=== PATIENT | female | born 1985 | race Hispanic/Latino ===

== ENCOUNTER 2016-09-17 10:19 | Emergency (ER) | payer OTHER ==
--- NOTE | 2016-09-17 11:08 | EDDOCDS ---
Physician Documentation [facility] Name: Kelly Medley Age: 31 yrs Sex: Female : 1985 Arrival Date: 09/17/2016 Time: 10:19 Bed Triage 3 Private MD: NO PRIMARY PHYSICIAN, . Disposition: 09/17/16 11:01 Discharged to Home/Self Care. Impression: Acute upper respiratory infection, unspecified. - Condition is Stable. - Discharge Instructions: Upper Respiratory Infection, Adult. - Prescriptions for Tylenol 325 mg Oral Tablet - take 2 tablet by ORAL route every 6 hours as needed; 1 bottle. Mucinex 600 mg - take 1 tablet by ORAL route 2 times per day; 30 tablet. benzonatate 200 mg Oral Capsule - take 1 capsule by ORAL route 3 times per day As needed; 30 capsule. - Medication Reconciliation, Local Pharmacy Hours form. - Follow up: Juan Francisco Hicks, [facility]; When: As needed; Reason: Worsening of conditions. Follow up: Emergency Department; When: As needed; Reason: Worsening of conditions. - Problem is new. - Symptoms have improved. Historical: - Allergies: no known allergies; - Home Meds: 1. none - PMHx: none; - PSHx: none; - Social history: Smoking status: Patient states former smoker of tobacco. 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 . - Family history: Not pertinent. - : The pt / caregiver states he / she is not on anticoagulants. Home medication list is obtained from the patient. - Exposure Risk Screening:: None identified. 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 (160.02 cm) (M); Pain 4/10; 10:21 Body Mass Index 20.55 (52.62 kg, 160.02 cm) cmb MDM: 10:42 Strep Screen, Nursing ordered. dk1 10:52 GATS (NEGATIVE STREP SCREEN) Ordered. EDMS 10:52 Financial registration complete. lg Signatures: Dispatcher [employer] EDMirtha Hodge, José Luis Reg lg Jero Landis PA-C PA-C dk1 Sharri Alfaro,RN RN kc3 MTDD
--- NOTE | 2016-09-17 11:08 | EDDOCDS ---
Nurse's Notes [facility] Name: Kelly Medley Age: 31 yrs Sex: Female : 1985 Arrival Date: 09/17/2016 Time: 10:19 Bed Triage 3 Private MD: NO PRIMARY PHYSICIAN, . Diagnosis: Acute upper respiratory infection, unspecified Presentation: 09/17 10:25 Presenting complaint: Patient states: sore throat and mild discomfort when swallowing x kc3 1 week. Risk factors: Stridor is not present. Drooling is not present. Shortness of breath is not present. Cellulitis is not present. Adult Sepsis Screening: The patient does not have new or worsening altered mentation. Patient's respiratory rate is less than 22. Systolic blood pressure is greater than 100. Patient has a qSOFA score of 0- Negative Sepsis Screen. Suicide/Homicide risk assessment- the patient denies having any suicidal and/or homicidal ideations and does not present with any other emotional, behavioral or mental health complaints. Status: The patient is a dependent. Transition of care: patient was not received from another setting of care. 10:25 Acuity: SHAHRZAD Level 4 kc3 10:25 Method Of Arrival: Walkin/Carried/Asstd kc3 Triage Assessment: 10:28 General: Appears in no apparent distress, comfortable, Behavior is appropriate for age, kc3 cooperative. Pain: Location: throat. Pain: Pain currently is 4 out of 10 on a pain scale. Pt Declines HIV testing. EENT: Reports difficulty swallowing x 1 week pain when swallowing. 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 none - PMHx: none; - PSHx: none; - Social history: Smoking status: Patient states former smoker of tobacco. 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 . - Family history: Not pertinent. - : The pt / caregiver states he / she is not on anticoagulants. Home medication list is obtained from the patient. - Exposure Risk Screening:: None identified. Screenin:52 Screening information is obtained from the patient. Fall risk: No risks identified. mlb1 Assistance ADL's: requires no assistance with activities of daily living. Abuse/DV Screen: The patient / caregiver reports he/she is: not in a situation that causes fear, pain or injury. Nutritional screening: No deficits noted. Advance Directives: Currently, there is no health care proxy. home support is adequate. Assessment: 10:51 General: Appears in no apparent distress, Behavior is appropriate for age, cooperative. mlb1 Pain: Location: left aspect of posterior pharynx and right aspect of posterior pharynx. EENT: Throat is reddened with gag reflex present. Respiratory: Airway is patent Respiratory effort is even, unlabored. Vital Signs: 10:21 BP 129 / 78; Pulse 82; Resp 16; Temp 97.4(O); Pulse Ox 100% ; Weight 52.62 kg (M); cmb Height 63 in. (160.02 cm) (M); Pain 4/10; 10:21 Body Mass Index 20.55 (52.62 kg, 160.02 cm) cmb Vitals: 10:21 Log In Time: September 17, 2016 at 10:19. cmb 10:51 Strep Screen is obtained and tested: Negative, a GATSNEG culture is ordered in [facility] mlb1 and sent. ED Course: 10:20 Patient visited by Naila Pinedo. cmb 10:20 Patient moved to Waiting cmb 10:21 NO PRIMARY PHYSICIAN, . is Private Physician. cmb 10:23 Patient moved to Pre RCE cmb 10:27 Triage Initiated kc3 10:30 Patient moved to Triage 3 kc3 10:33 [facility]. dk1 10:33 Hari Munson MD is Attending Physician. dk1 10:51 Patient visited by Jero Landis PA-C. dk1 10:52 The patient / caregiver is instructed regarding the plan of care and ED course. mlb1 10:52 No procedures done that require assistance. mlb1 10:57 GATS (NEGATIVE STREP SCREEN) Sent. kc3 11:01 [facility]. dk1 11:04 Patient name changed from Alba\S\\S\Bigio-Iman\S\ to Alba\S\Carolyn\S\Bigio-Iman. EDMS 11:06 No IV's were initiated during this patient's visit. kc3 Order Results: There are currently no results for this order. Outcome: 11:01 Discharge ordered by Provider. dk1 11:06 Discharge Assessment: Patient awake, alert and oriented x 3. No cognitive and/or kc3 functional deficits noted. Patient verbalized understanding of disposition instructions. patient administered narcotics - no. The following High Risk Discharge criteria are identified: None. Discharged to home ambulatory. Condition: stable. Discharge instructions given to patient, Instructed on discharge instructions, follow up and referral plans. medication usage, Demonstrated understanding of instructions, medications, Pt was receptive of discharge instructions/ teaching. Prescriptions given X 3. No special radiology studies were completed. Property :Personal belongings accompany Pt. 11:07 Patient left the ED. kc3 Signatures: Dispatcher [employer] EDNC Jason Cr RN RN mlb1 Jero Landis, PACarolinaC PACarolinaC charli1 Naila Pinedo Kelsi,RN RN kc3 KAVITHA
--- NOTE | 2016-09-19 12:09 | EDDOCDS ---
Physician Documentation [facility] Name: Kelly Medley Age: 31 yrs Sex: Female : 1985 Arrival Date: 09/17/2016 Time: 10:19 Bed Triage 3 Private MD: NO PRIMARY PHYSICIAN, . Disposition: 09/17/16 11:01 Discharged to Home/Self Care. Impression: Acute upper respiratory infection, unspecified. - Condition is Stable. - Discharge Instructions: Upper Respiratory Infection, Adult. - Prescriptions for Tylenol 325 mg Oral Tablet - take 2 tablet by ORAL route every 6 hours as needed; 1 bottle. Mucinex 600 mg - take 1 tablet by ORAL route 2 times per day; 30 tablet. benzonatate 200 mg Oral Capsule - take 1 capsule by ORAL route 3 times per day As needed; 30 capsule. - Medication Reconciliation, Local Pharmacy Hours form. - Follow up: Juan Francisco Hicks, [facility]; When: As needed; Reason: Worsening of conditions. Follow up: Emergency Department; When: As needed; Reason: Worsening of conditions. - Problem is new. - Symptoms have improved. Historical: - Allergies: no known allergies; - Home Meds: 1. none - PMHx: none; - PSHx: none; - Social history: Smoking status: Patient states former smoker of tobacco. 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 . - Family history: Not pertinent. - : The pt / caregiver states he / she is not on anticoagulants. Home medication list is obtained from the patient. - Exposure Risk Screening:: None identified. 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 (160.02 cm) (M); Pain 4/10; 10:21 Body Mass Index 20.55 (52.62 kg, 160.02 cm) cmb MDM: 10:42 Strep Screen, Nursing ordered. dk1 10:52 GATS (NEGATIVE STREP SCREEN) Ordered. EDMS 10:52 Financial registration complete. lg 11:11 [facility] Payment Agreement was scanned into [employer] and attached to record. lg 15:29 T-Sheet-- Draft Copy was scanned into [employer] and attached to record. klr Signatures: Dispatcher [employer] Mirtha Kinney, Jero Menezes lg, YAHAIRA augustin1 Sharri Alfaro,RN RN kc3 Elly Parkerr The chart was reviewed and I authenticate all verbal orders and agree with the evaluation and treatment provided.Attachments: 11:11 [facility] Payment Agreement lg 15:29 T-Sheet-- Draft Copy klr Chart Complete MTDD
--- NOTE | 2016-09-19 12:09 | EDDOCDS ---
Nurse's Notes [facility] Name: Kelly Medley Age: 31 yrs Sex: Female : 1985 Arrival Date: 09/17/2016 Time: 10:19 Bed Triage 3 Private MD: NO PRIMARY PHYSICIAN, . Diagnosis: Acute upper respiratory infection, unspecified Presentation: 09/17 10:25 Presenting complaint: Patient states: sore throat and mild discomfort when swallowing x kc3 1 week. Risk factors: Stridor is not present. Drooling is not present. Shortness of breath is not present. Cellulitis is not present. Adult Sepsis Screening: The patient does not have new or worsening altered mentation. Patient's respiratory rate is less than 22. Systolic blood pressure is greater than 100. Patient has a qSOFA score of 0- Negative Sepsis Screen. Suicide/Homicide risk assessment- the patient denies having any suicidal and/or homicidal ideations and does not present with any other emotional, behavioral or mental health complaints. Status: The patient is a dependent. Transition of care: patient was not received from another setting of care. 10:25 Acuity: SHAHRZAD Level 4 kc3 10:25 Method Of Arrival: Walkin/Carried/Asstd kc3 Triage Assessment: 10:28 General: Appears in no apparent distress, comfortable, Behavior is appropriate for age, kc3 cooperative. Pain: Location: throat. Pain: Pain currently is 4 out of 10 on a pain scale. Pt Declines HIV testing. EENT: Reports difficulty swallowing x 1 week pain when swallowing. 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 none - PMHx: none; - PSHx: none; - Social history: Smoking status: Patient states former smoker of tobacco. 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 . - Family history: Not pertinent. - : The pt / caregiver states he / she is not on anticoagulants. Home medication list is obtained from the patient. - Exposure Risk Screening:: None identified. Screenin:52 Screening information is obtained from the patient. Fall risk: No risks identified. mlb1 Assistance ADL's: requires no assistance with activities of daily living. Abuse/DV Screen: The patient / caregiver reports he/she is: not in a situation that causes fear, pain or injury. Nutritional screening: No deficits noted. Advance Directives: Currently, there is no health care proxy. home support is adequate. Assessment: 10:51 General: Appears in no apparent distress, Behavior is appropriate for age, cooperative. mlb1 Pain: Location: left aspect of posterior pharynx and right aspect of posterior pharynx. EENT: Throat is reddened with gag reflex present. Respiratory: Airway is patent Respiratory effort is even, unlabored. Vital Signs: 10:21 BP 129 / 78; Pulse 82; Resp 16; Temp 97.4(O); Pulse Ox 100% ; Weight 52.62 kg (M); cmb Height 63 in. (160.02 cm) (M); Pain 4/10; 10:21 Body Mass Index 20.55 (52.62 kg, 160.02 cm) cmb Vitals: 10:21 Log In Time: September 17, 2016 at 10:19. cmb 10:51 Strep Screen is obtained and tested: Negative, a GATSNEG culture is ordered in [facility] mlb1 and sent. ED Course: 10:20 Patient visited by Naila Pinedo. cmb 10:20 Patient moved to Waiting cmb 10:21 NO PRIMARY PHYSICIAN, . is Private Physician. cmb 10:23 Patient moved to Pre RCE cmb 10:27 Triage Initiated kc3 10:30 Patient moved to Triage 3 kc3 10:33 Jero Landis PA-C [facility]. dk1 10:33 Hari Munson MD is Attending Physician. dk1 10:51 Patient visited by Jero Landis PA-C. dk1 10:52 The patient / caregiver is instructed regarding the plan of care and ED course. mlb1 10:52 No procedures done that require assistance. mlb1 10:57 GATS (NEGATIVE STREP SCREEN) Sent. kc3 11:01 [facility]. dk1 11:04 Patient name changed from Alba\S\\S\Bigio-Iman\S\ to Alba\S\Carolyn\S\Bigio-Iman. EDMS 11:06 No IV's were initiated during this patient's visit. kc3 11:11 [facility] Payment Agreement was scanned into [employer] and attached to record. lg 15:29 T-Sheet-- Draft Copy was scanned into [employer] and attached to record. klr Order Results: Lab Order: GATS (NEGATIVE STREP SCREEN); SPEC'M 09/17/16 10:57 Test: GATS CULTURE (NEG STREP SCR); Value: GATS RESULT NEGATIVE FOR STREP PYOGENES (GROUP A); Status: F Test: GATS CULTURE (NEG STREP SCR); Value: <EXTERNAL COMMENT eCWMed> FULL REPORT IN LAB NOTES (eCW and Medent).; Status: F Test: GATS CULTURE (NEG STREP SCR); Value: ORGANISM 1: STREP (GROUP F) CONSTELLATUS; Status: F Test: GATS CULTURE (NEG STREP SCR); Value: STREP (GROUP F) CONSTELLATUS; Status: F Test: GATS CULTURE (NEG STREP SCR); Value: QUANTITY OF GROWTH FEW; Status: F Outcome: 11:01 Discharge ordered by Provider. dk1 11:06 Discharge Assessment: Patient awake, alert and oriented x 3. No cognitive and/or kc3 functional deficits noted. Patient verbalized understanding of disposition instructions. patient administered narcotics - no. The following High Risk Discharge criteria are identified: None. Discharged to home ambulatory. Condition: stable. Discharge instructions given to patient, Instructed on discharge instructions, follow up and referral plans. medication usage, Demonstrated understanding of instructions, medications, Pt was receptive of discharge instructions/ teaching. Prescriptions given X 3. No special radiology studies were completed. Property :Personal belongings accompany Pt. 11:07 Patient left the ED. kc3 Signatures: Dispatcher [employer] EDMirtha Hodge, Jason Gallardo lg RN RN mlb1 Jero Landis, PA-C PA-C dk1 Naila Pinedo Kelsi, RN RN kc3 Elly Parker r Chart Complete MTDD
--- NOTE | 2016-09-19 12:09 | EDDOCDS ---
Physician Documentation [facility] Name: Kelly Medley Age: 31 yrs Sex: Female : 1985 Arrival Date: 09/17/2016 Time: 10:19 Bed Triage 3 Private MD: NO PRIMARY PHYSICIAN, . Disposition: 09/17/16 11:01 Discharged to Home/Self Care. Impression: Acute upper respiratory infection, unspecified. - Condition is Stable. - Discharge Instructions: Upper Respiratory Infection, Adult. - Prescriptions for Tylenol 325 mg Oral Tablet - take 2 tablet by ORAL route every 6 hours as needed; 1 bottle. Mucinex 600 mg - take 1 tablet by ORAL route 2 times per day; 30 tablet. benzonatate 200 mg Oral Capsule - take 1 capsule by ORAL route 3 times per day As needed; 30 capsule. - Medication Reconciliation, Local Pharmacy Hours form. - Follow up: Juan Francisco Hicks, [facility]; When: As needed; Reason: Worsening of conditions. Follow up: Emergency Department; When: As needed; Reason: Worsening of conditions. - Problem is new. - Symptoms have improved. Historical: - Allergies: no known allergies; - Home Meds: 1. none - PMHx: none; - PSHx: none; - Social history: Smoking status: Patient states former smoker of tobacco. 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 . - Family history: Not pertinent. - : The pt / caregiver states he / she is not on anticoagulants. Home medication list is obtained from the patient. - Exposure Risk Screening:: None identified. 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 (160.02 cm) (M); Pain 4/10; 10:21 Body Mass Index 20.55 (52.62 kg, 160.02 cm) cmb MDM: 10:42 Strep Screen, Nursing ordered. dk1 10:52 GATS (NEGATIVE STREP SCREEN) Ordered. EDMS 10:52 Financial registration complete. lg 11:11 [facility] Payment Agreement was scanned into [employer] and attached to record. lg 15:29 T-Sheet-- Draft Copy was scanned into [employer] and attached to record. klr Signatures: Dispatcher [employer] Mirtha Kinney, Jero Menezes lg, AYHAIRA augustin1 Sharri Alfaro,RN RN kc3 Elly Parkerr The chart was reviewed and I authenticate all verbal orders and agree with the evaluation and treatment provided.Attachments: 11:11 [facility] Payment Agreement lg 15:29 T-Sheet-- Draft Copy klr Chart Complete MTDD
== END 2016-09-17 11:07 | disposition home or self-care (01) ==
LOC: M ED 10:19
DX: J06.9 Acute upper respiratory infection, unspecified (principal); Z87.891 Personal history of nicotine dependence

== ENCOUNTER 2018-06-05 09:17 | Emergency (ER) | payer OTHER ==
[2018-06-05] MEDS: AMOXICILLIN 500 MG CAP PO (09:59)
== END 2018-06-05 10:04 | disposition home or self-care (01) ==
LOC: M ED 09:17
DX: H66.92 Otitis media, unspecified, left ear (principal); J02.9 Acute pharyngitis, unspecified; K21.9 Gastro-esophageal reflux disease without esophagitis; Z79.899 Other long term (current) drug therapy
CPT/HCPCS: 87880

== ENCOUNTER → 2022-08-17 | Outpatient (CLI) | payer OTHER ==
[~2022-08-17] MED LIST: ACET1TAB55 PO; AMOX875T PO; RANI15TA PO
== END ==
LOC: M WHC 10:06
PROVIDERS: ATTEND Advanced Practice Midwife
DX: Z34.82 Encounter for supervision of other normal pregnancy, second trimester (principal)

== ENCOUNTER 2023-01-02 07:23 | Inpatient (IN) | payer OTHER ==
[~2023-01-02] VITALS: Ht 157.5 cm; Wt 61.2 kg
[2023-01-02] VITALS (32 sets, daily range): BP systolic 99–140; BP diastolic 51–80; O2SAT 98
[2023-01-02] MEDS ORDERED: FERR325T19 (08:03)
[2023-01-02] MEDS ORDERED: PREN27TA3 (08:03)
[2023-01-02] MEDS ORDERED: ASPI-226 (08:03)
[2023-01-02] MEDS ORDERED: LACTATED RINGER'S 1000 ML IV STA (08:17)
[2023-01-02] MEDS ORDERED: CARBOPROST TROMETHAMINE 250 MCG/ML AMP IM PRN (08:20)
[2023-01-02] MEDS ORDERED: LR 1,000 ML IV SCH (08:20)
[2023-01-02] MEDS ORDERED: METHYLERGONOVINE MALEATE 0.2MG/ML 1ML VIAL IM PRN (08:20)
[2023-01-02] MEDS ORDERED: miSOPROStol 25MCG 1/4 TABLET SL ONE ×2 (08:20→12:20)
[2023-01-02] MEDS ORDERED: TRANEXAMIC ACID INJection 1,000 MG in NS 100 ML IV PRN (08:20)
[2023-01-02] MEDS ORDERED: LIDOCAINE 1% MDV 20ML VIAL INFIL PRN (08:20)
[2023-01-02] MEDS ORDERED: OXYTOCIN DRIP 30 UNITS in IV 1 EA IV PRN ×4 (08:20)
[2023-01-02 09:07] LABS: HEMATOCRIT 39.7 % (36.0-47.0); HEMOGLOBIN 13.4 g/dl (12.0-15.5); MEAN CORPUSCULAR HEMOGLOBIN 30.8 pg (27.0-33.0); MEAN CORPUSCULAR HGB CONC 33.8 g/dl (32.0-36.5); MEAN CORPUSCULAR VOLUME 91.3 fl (80.0-96.0); PLATELET COUNT, AUTOMATED 258 10^3/uL (150-450); RED BLOOD COUNT 4.35 10^6/uL (4.00-5.40); WHITE BLOOD COUNT 9.4 10^3/uL (4.0-10.0)
[2023-01-02] MEDS ORDERED: HOME MED LIST COMPLETE! XX SCH (09:30)
[2023-01-02] MEDS ORDERED: FERR325T3 PO (14:24)
[2023-01-02] MEDS ORDERED: ASPI81TA26 PO (14:24)
[2023-01-02] MEDS ORDERED: PREN27TA3 PO (14:24)
[2023-01-02] MEDS ORDERED: ePHEDrine SULFATE 25 MG/5 ML(5MG/ML) SYRINGE IVP PRN (16:00)
[2023-01-02] MEDS ORDERED: NALOXONE INJ 0.4MG/1ML VIAL IV PRN (16:00)
[2023-01-02] MEDS ORDERED: EPIDURAL/PCA KEYS XX PRN (16:00)
[2023-01-02] MEDS ORDERED: ONDANSETRON 4MG 2ML VIAL IV PRN (16:00)
[2023-01-02] MEDS ORDERED: LR 500 ML IV PRN (16:00)
[2023-01-02] MEDS ORDERED: FENTANYL/ROPIVACAINE/NACL BAG 100 ML EPIDURAL SCH (16:00)
[2023-01-02] MEDS ORDERED: diphenhydrAMINE 50MG/ML VIAL IV PRN (16:00)
[2023-01-02] MEDS ORDERED: MOM 30ML SUSPENSION UDC PO PRN (17:50)
[2023-01-02] MEDS ORDERED: ANUSOL HC CREAM 30GM TOP PRN (17:50)
[2023-01-02] MEDS ORDERED: ACETAMINOPHEN 500 MG TAB PO PRN (17:50)
[2023-01-02] MEDS ORDERED: DOCUSATE SODIUM 100MG CAPSULE PO PRN (17:50)
[2023-01-02] MEDS ORDERED: DIBUCAINE 1% OINTMENT 30GM TOP PRN (17:50)
[2023-01-03] MEDS: IBUPROFEN 800 MG TAB PO PRN ×2 (05:44→19:51)
[2023-01-03 05:50] VITALS: BP 112/62; O2SAT 97
[2023-01-03] MEDS ORDERED: PRENATAL VITAMINS CHEWABLE TABLET PO SCH (09:00)
[2023-01-03 18:00] VITALS: BP 110/66; O2SAT 100
[2023-01-04 06:00] VITALS: BP 102/63; O2SAT 97
[2023-01-04] MEDS ORDERED: MEASLES,MUMPS,RUBELLA VACCINE INJ (MMR-II) SC.IMMUN ONE (09:00)
== END 2023-01-04 14:30 | disposition home or self-care (01) | DRG 807 ==
LOC: M LDI 07:23 → M OBS 21:03
PROVIDERS: ADMIT Advanced Practice Midwife; ATTEND Advanced Practice Midwife
PROC: 10E0XZZ Delivery of Products of Conception, External Approach (ICD-10-PCS; principal; 2023-01-02)
PROC: 0KQM0ZZ Repair Perineum Muscle, Open Approach (ICD-10-PCS; 2023-01-02)
PROC: 3E0P7GC Introduction of Other Therapeutic Substance into Female Reproductive, Via Natural or Artificial Opening (ICD-10-PCS; 2023-01-02)
DX: O70.1 Second degree perineal laceration during delivery (principal); Z37.0 Single live birth; Z3A.39 39 weeks gestation of pregnancy; O76 Abnormality in fetal heart rate and rhythm complicating labor and delivery